=== PATIENT | female | born 1985 | race Caucasian/White ===

== ENCOUNTER 2025-01-07 15:50 | Inpatient (IN) | payer MEDICAID, OTHER ==
[~2025-01-07] VITALS: Ht 154.9 cm; Wt 69.2 kg
[2025-01-07] MEDS: SODIUM CHLORIDE 0.9% 1,000 ML IV ONE (16:15)
[2025-01-07 17:03] LABS: CHLORIDE 100 mEq/L (98-107); POTASSIUM 3.7 mEq/L (3.5-5.1); SODIUM 135 mEq/L (136-145)
[2025-01-07 17:04] LABS: CALCIUM 8.9 mg/dL (8.7-10.4); CARBON DIOXIDE 28 mEq/L (21-32)
[2025-01-07 17:07] LABS: BASOPHILS % 0.6 % (0.0-2.0); EOSINOPHILS % 0.5 % (0.0-5.0); HEMATOCRIT. 26.3 % (36.0-48.0); HEMOGLOBIN. 7.7 g/dL (12.0-16.0); LYMPHOCYTES % 11.8 % (20.0-50.0); MEAN CORPUSCULAR HEMOGLOBIN 18.4 pg (28.0-32.0); MEAN CORPUSCULAR HGB CONC 29.2 g/dL (31.0-37.0); MEAN CORPUSCULAR VOLUME 63.2 fL (81.0-99.0); MEAN PLATELET VOLUME 7.8 fl (7.4-10.4); MONOCYTES % 9.2 % (2.0-8.0); NEUTROPHILS % 77.9 % (40.0-76.0); PLATELET 447 x1000/uL (130-400); RED BLOOD CELL COUNT 4.16 mill/uL (4.2-5.4); RED CELL DISTRIBUTION WIDTH 17.7 % (11.6-14.6); WHITE BLOOD COUNT 14.1 x1000/uL (4.5-11.0)
[2025-01-07 17:08] LABS: ADD RBC MORPHOLOGY YES; DIFFERENTIAL COMMENT 1
[2025-01-07 17:09] LABS: CREATININE 0.7 mg/dL (0.6-1.0); GLUCOSE 111 mg/dL (70-105); UREA NITROGEN BLOOD 8 mg/dL (9-23)
[2025-01-07 17:11] LABS: LACTIC ACID 2.2 mmol/L (0.4-2.0)
[2025-01-07 17:18] LABS: INR 1.2; PROTHROMBIN TIME 12.3 sec (9.6-11.0)
[2025-01-07] MEDS: CEFTRIAXONE 1GM/50ML 50 ML IV ONE (17:24)
[2025-01-07] MEDS: KETOROLAC 15MG/ML VIAL IV ONE (17:54)
[2025-01-07 17:56] LABS: PLATELET ESTIMATE INCREASED
[2025-01-07 17:57] LABS: ANISOCYTOSIS 1+; HYPOCHROMASIA 3+; MICROCYTOSIS 3+
[2025-01-07 21:30] LABS: CLARITY URINE CLOUDY (CLEAR); COLOR URINE YELLOW (YELLOW); GLUCOSE URINE NEGATIVE (NEGATIVE); KETONES URINE NEGATIVE (NEGATIVE); LEUKOCYTE ESTERASE URINE 2+ (NEGATIVE); NITRITE URINE POSITIVE (NEGATIVE); OCCULT BLOOD URINE 1+ (NEGATIVE); PROTEIN URINE NEGATIVE (NEGATIVE)
[2025-01-07 21:50] LABS: BACTERIA URINE 1+; RBC URINE 0-2 /hpf (0-2); SQUAMOUS EPITHELIAL CELL URINE 1+ /lpf (RARE/1+)
[2025-01-07 22:57] VITALS: BP 129/66; PULSE 78; RESP 20; TEMP 36.2; O2SAT 100
[2025-01-07 23:05] VITALS: BP 129/66; PULSE 78; RESP 20; TEMP 36.2
[2025-01-08] VITALS: BP 125/67; PULSE 68; RESP 18; TEMP 36.3; O2SAT 98
[2025-01-08] MEDS ORDERED: ZOLPIDEM TARTRATE 5MG TABLET PO PRN
[2025-01-08] MEDS ORDERED: ONDANSETRON HCL 4MG/2ML INJ IV PRN
[2025-01-08] MEDS ORDERED: IOHEXOL-300 100 ML BOTTLE ONE (00:02)
[2025-01-08] MEDS ORDERED: FERR-71 MT (01:51)
[2025-01-08] MEDS: OXYCODONE HCL/ACETAMINOPHEN 5/325MG TABLET PO PRN ×2 (02:01→13:08)
[2025-01-08 04:00] VITALS: BP 105/54; PULSE 79; RESP 21; TEMP 36.1; O2SAT 100
[2025-01-08 06:47] LABS: HEMATOCRIT 26.8 % (36.0-48.0); HEMOGLOBIN 7.9 g/dL (12.0-16.0); MEAN CORPUSCULAR HEMOGLOBIN 19.3 pg (28.0-32.0); MEAN CORPUSCULAR HGB CONC 29.5 g/dL (31.0-37.0); MEAN CORPUSCULAR VOLUME 65.4 fL (81.0-99.0); PLATELET 430 x1000/uL (130-400); RED CELL DISTRIBUTION WIDTH 17.9 % (11.6-14.6); WHITE BLOOD COUNT 11.7 x1000/uL (4.5-11.0)
[2025-01-08 07:13] LABS: IRON 17 ug/dL (50-170)
[2025-01-08 07:16] LABS: TOTAL IRON BINDING CAPACITY 588 ug/dl (250-425)
[2025-01-08 08:00] VITALS: BP 108/58; PULSE 78; RESP 20; TEMP 36.3; O2SAT 100
[2025-01-08 12:00] VITALS: BP 116/74; PULSE 84; RESP 19; TEMP 36.7; O2SAT 96
[2025-01-08 12:14] LABS: HEMOGLOBIN 7.3 g/dL (12.0-16.0); MEAN CORPUSCULAR HEMOGLOBIN 19.6 pg (28.0-32.0); MEAN CORPUSCULAR HGB CONC 30.4 g/dL (31.0-37.0); MEAN CORPUSCULAR VOLUME 64.3 fL (81.0-99.0); PLATELET 453 x1000/uL (130-400); RED BLOOD CELL COUNT 3.73 mill/uL (4.2-5.4); RED CELL DISTRIBUTION WIDTH 17.6 % (11.6-14.6); WHITE BLOOD COUNT 8.8 x1000/uL (4.5-11.0)
[2025-01-08 12:39] LABS: FOLIC ACID (FOLATE) SERUM 14.92 ng/mL (>5.38); VITAMIN B12 SERUM 717 pg/mL (211-911)
[2025-01-08 12:48] LABS: HCG SCREEN NEGATIVE
[2025-01-08 16:00] VITALS: BP 133/77; PULSE 73; RESP 18; TEMP 36.2; O2SAT 96
[2025-01-08] MEDS ORDERED: CEFTRIAXONE 1GM/50ML 50 ML IV SCH (18:00)
[2025-01-08 20:00] VITALS: BP 116/75; PULSE 77; RESP 18; TEMP 36.7; O2SAT 100
[2025-01-08 21:35] LABS: HEMATOCRIT 23.2 % (36.0-48.0); HEMOGLOBIN 7.1 g/dL (12.0-16.0); MEAN CORPUSCULAR HEMOGLOBIN 19.7 pg (28.0-32.0); MEAN CORPUSCULAR HGB CONC 30.7 g/dL (31.0-37.0); MEAN CORPUSCULAR VOLUME 64.2 fL (81.0-99.0); PLATELET 456 x1000/uL (130-400); RED BLOOD CELL COUNT 3.61 mill/uL (4.2-5.4); RED CELL DISTRIBUTION WIDTH 17.7 % (11.6-14.6); WHITE BLOOD COUNT 7.6 x1000/uL (4.5-11.0)
[2025-01-09] VITALS: BP 111/60; PULSE 70; RESP 18; TEMP 36.4; O2SAT 97
[2025-01-09] MEDS ORDERED: IRON SUCROSE COMPLEX 100 MG/5 ML ML IV SCH
[2025-01-09 04:00] VITALS: BP 115/65; PULSE 66; RESP 16; TEMP 36.7; O2SAT 97
[2025-01-09 08:00] VITALS: BP 126/81; PULSE 81; RESP 18; TEMP 36.2; O2SAT 98
[2025-01-09] MEDS ORDERED: ACETAMINOPHEN 325MG TABLET PO PRN (10:30)
[2025-01-09 12:00] VITALS: BP 126/81; PULSE 81; RESP 18; TEMP 36.2; O2SAT 97
[2025-01-09] MEDS: IRON SUCROSE COMPLEX 100 MG/5 ML ML IV SCH (12:10)
[2025-01-09 12:33] LABS: HEMOGLOBIN 7.8 g/dL (12.0-16.0); HEMOGLOBIN. 7.8 g/dL (12.0-16.0); MEAN CORPUSCULAR HEMOGLOBIN 19.2 pg (28.0-32.0); MEAN CORPUSCULAR VOLUME 64.1 fL (81.0-99.0); MEAN PLATELET VOLUME 7.7 fl (7.4-10.4); PLATELET 561 x1000/uL (130-400); RED BLOOD CELL COUNT 4.06 mill/uL (4.2-5.4); RED CELL DISTRIBUTION WIDTH 18.1 % (11.6-14.6); WHITE BLOOD COUNT 7.6 x1000/uL (4.5-11.0)
[2025-01-09] MEDS ORDERED: FERR325T6 MT (12:35)
[2025-01-09] MEDS ORDERED: NITR100C MT (12:35)
[2025-01-09 12:41] LABS: CARBON DIOXIDE 28 mEq/L (21-32); CHLORIDE 101 mEq/L (98-107); POTASSIUM 4.2 mEq/L (3.5-5.1); SODIUM 139 mEq/L (136-145)
[2025-01-09 12:42] LABS: CALCIUM 9.5 mg/dL (8.7-10.4)
[2025-01-09 12:46] LABS: CREATININE 0.6 mg/dL (0.6-1.0)
[2025-01-09 12:47] LABS: GLUCOSE 94 mg/dL (70-105); UREA NITROGEN BLOOD 11 mg/dL (9-23)
[2025-01-09 12:48] LABS: ALANINE AMINOTRANSFERASE 43 IU/L (10-49); ALBUMIN 4.3 g/dL (3.2-4.8); ASPARTATE AMINOTRANSFERASE 34 IU/L (<34)
[2025-01-09 12:49] LABS: BILIRUBIN TOTAL 0.3 mg/dL (0.1-1.0); PROTEIN TOTAL 7.5 g/dL (6.0-8.3)
[2025-01-09 12:55] LABS: DIFFERENTIAL COMMENT 1
[2025-01-09 16:00] VITALS: BP 136/80; PULSE 85; RESP 18; TEMP 36.1; O2SAT 99
[2025-01-09 16:16] LABS: ANISOCYTOSIS 1+; HYPOCHROMASIA 2+; PLATELET ESTIMATE INCREASED
[2025-01-09 16:17] LABS: GIANT PLATELETS 1+; MICROCYTOSIS 3+; TARGET CELLS 1+; TEAR DROP CELLS 1+
[2025-01-09 17:15] VITALS: BP 136/80; PULSE 85; TEMP 97; O2SAT 99
== END 2025-01-09 17:58 | disposition home or self-care (01) | DRG 720 ==
LOC: ER 15:50 → EDBEDREQ 18:36 → EDBEDREQTM 18:36 → 6WST 22:36
PROVIDERS: ADMIT Internal Medicine; ATTEND Internal Medicine
DX: A41.9 Sepsis, unspecified organism (principal); D50.9 Iron deficiency anemia, unspecified; F10.20 Alcohol dependence, uncomplicated; F15.90 Other stimulant use, unspecified, uncomplicated; F17.200 Nicotine dependence, unspecified, uncomplicated; R82.71 Bacteriuria; Y90.9 Presence of alcohol in blood, level not specified; N92.0 Excessive and frequent menstruation with regular cycle; N39.0 Urinary tract infection, site not specified
CPT/HCPCS: 36415; 74177; 76830; 76856; 80048; 80053; 81003; 82607; 82746; 83540; 83550; 83605; 84145; 84703; 85025; 85027; 85044; 86850; 86900; 87077; 87186; 93005; 99291; A4606; C1893; J0696; J1885; J7030; Q9967